=== PATIENT | female | born 1995 | race Caucasian/White ===

== ENCOUNTER 2018-04-17 21:31 | Inpatient (IN) | payer OTHER ==
[2018-04-17] MEDS ORDERED: NS 1,000 ML IV ONE ×2 (21:52)
[2018-04-17] MEDS ORDERED: IBUPROFEN 800 MG TAB PO ONE (21:58)
--- NOTE | 2018-04-17 22:01 | EDPHY ---
H & P Stated Complaint: fever had a kidney infection and scope was told to come in Time Seen by Provider: 04/17/18 22:01 HPI/ROS: HPI CHIEF COMPLAINT: Fever. HISTORY OF PRESENT ILLNESS: This is a 22-year-old female, history of endometriosis, and she has a history of eosinophilic esophagitis, she reports that over the weekend she got sick with fever was running temperatures 101 to 102. She went to urgent care was diagnosed with a urinary tract infection employed on antibiotics. States she has been taking her antibiotics for urinary tract infection, started feel better however spiked a temperature tonight. Additionally she reports to me that she had an EGD which is routine for her today for eosinophilic esophagitis. She presents emergency room with fever, cough, shortness of breath. Past Medical History: Endometriosis, esophagitis Past Surgical History: No recent surgery Social History: Lives locally denies drugs alcohol tobacco. Family History: Noncontributory ROS REVIEW OF SYSTEMS: 10 Systems were reviewed and negative with the exception of the elements mentioned in the history of present illness. Exam Constitutional triage nursing summary reviewed, vital signs reviewed, awake/ alert. Nontoxic but febrile and tachycardic upon arrival. Tachycardic 135, room air sat 89%. Eyes normal conjunctivae and sclera, EOMI, PERRLA. HENT dry lips, posterior pharynx unremarkable, tongue shows thrush, normal inspection, atraumatic, moist mucus membranes, no epistaxis, neck supple/ no meningismus, no raccoon eyes. Respiratory clear to auscultation bilaterally, normal breath sounds, no respiratory distress, no wheezing. Cardiovascular tachycardia, regular rhythm, no murmur, no edema, distal pulses normal. Gastrointestinal soft, non-tender, no rebound, no guarding, normal bowel sounds, no distension, no pulsatile mass. Genitourinary no CVA tenderness. Musculoskeletal no midline vertebral tenderness, full range of motion, no calf swelling, no tenderness of extremities, no meningismus, good pulses, neurovascularly intact. Skin pink, warm, & dry, no rash, skin atraumatic. Neurologic awake, alert and oriented x 3, AAOx3, moves all 4 extremities equally, motor intact, sensory intact, CN II-XII intact, normal cerebellar, normal vision, normal speech. Psychiatric normal mood/affect. Heme/Lymph/Immune no lymphadenopathy. Differential Diagnosis: Includes but is not limited to in a particular order sepsis, UTI, pyelonephritis, bacteremia, influenza, pneumonia Medical Decision Making: Plan for this patient IV establishment IV fluid bolus , check lactic acid, blood cultures, urinalysis, chest x-ray basic blood work and re-evaluate. Motrin for fever control. Re-evaluation: Chest x-ray reviewed shows a left-sided pneumonia. Image interpreted by myself. Plan for this patient treat for community-acquired pneumonia IV Rocephin IV azithro Patient has blood cultures pending. Initial lactic acid 2.4. Will repeat after IV fluids. Patient here tachycardia, fever, 89% room air sat concerning for pneumonia. Chest x-ray confirms pneumonia. Plan for hospital admission Influenza negative. Updated patient. Source: Patient - Personal History LMP (Females 10-55): 22-28 Days Ago Current Tetanus/Diphtheria Vaccine: Yes Current Tetanus Diphtheria and Acellular Pertussis (TDAP): Yes - Medical/Surgical History Hx Asthma: No Hx Chronic Respiratory Disease: No Hx Diabetes: No Hx Cardiac Disease: No Hx Renal Disease: No Hx Cirrhosis: No Hx Alcoholism: No Hx HIV/AIDS: No Hx Splenectomy or Spleen Trauma: No Other PMH: bad menstrual cramps - Social History Smoking Status: Never smoked Constitutional: Initial Vital Signs Temperature (C) 39.3 C H 04/17/18 21:33 Heart Rate 135 H 04/17/18 21:33 Respiratory Rate 18 04/17/18 21:33 Blood Pressure 106/68 04/17/18 21:33 O2 Sat (%) 89 L 04/17/18 21:33 O2 Delivery Mode Nasal Cannula O2 (L/minute) 2 Allergies/Adverse Reactions: aspirin Allergy (Verified 04/18/18 09:07) Unknown Home Medications: Medication Instructions Recorded Hydrocodone/APAP 5/325 [[place] 1 each PO Q6HRS PRN 04/17/18 5/325 (*)] Ondansetron HCl [Zofran] 4 mg PO Q6-8PRN PRN 04/17/18 Sulfamethox/Tmp 800/160 mg 1 tab PO BID 04/17/18 [Bactrim Ds] Cyclobenzaprine [Flexeril 10 MG 5 mg PO HS PRN 04/18/18 (*)] FLUoxetine [Prozac 10 MG (*)] 10 mg PO DAILY 04/18/18 Ibuprofen [Motrin (*)] 200 mg PO DAILY PRN 04/18/18 Tears/Dextran 70/Hypromellose 1 drop EACHEYE Q2 PRN 04/18/18 [Natural Balance Tears (*)] Testosterone IM [Testosterone 50 mg IM Q14D 04/18/18 100mg/ml IM inj (*)] Medical Decision Making - Data Points Laboratory Results: Laboratory Results 04/17/18 22:04 04/17/18 21:50 Microbiology Results: MICROBIOLOGY 04/17/18 21:50 Blood Blood Culture - Preliminary 04/17/18 22:04 Blood Blood Culture - Preliminary Medications Given: Acetaminophen (Tylenol) 650 mg PO Q4HRS PRN PRN Reason: Pain, Mild/Fever, Can Take PO Stop: 10/14/18 22:54 Last Admin: 04/19/18 23:52 Dose: 650 mg Hydrocodone Bitart/Acetaminophen ([place] 5/325) 1 tab PO Q6HRS PRN PRN Reason: Pain, Breakthrough Stop: 04/28/18 09:07 Last Admin: 04/18/18 18:34 Dose: 1 tab Albuterol (Proventil Neb) 3 ml IH Q2HRS PRN PRN Reason: Short of Breath/Dyspnea Stop: 10/14/18 22:54 Last Admin: 04/19/18 21:30 Dose: 3 ml Azithromycin (Zithromax) 250 mg PO DAILY AUSTEN PRN Reason: Protocol Stop: 05/18/18 08:59 Last Admin: 04/19/18 09:52 Dose: 250 mg Fluoxetine HCl (Prozac) 10 mg PO DAILY AUSTEN Stop: 10/15/18 09:14 Last Admin: 04/19/18 09:52 Dose: 10 mg Ceftriaxone Sodium/Dextrose (Rocephin 1 Gm (Premix)) 50 mls @ 100 mls/hr IV DAILY AUSTEN PRN Reason: Protocol Stop: 05/18/18 08:59 Last Admin: 04/19/18 09:52 Dose: 50 mls Ibuprofen (Motrin) 200 mg PO DAILY PRN PRN Reason: Pain, Mild Stop: 10/15/18 09:07 Last Admin: 04/19/18 09:56 Dose: 200 mg Ondansetron HCl (Zofran Odt) 4 mg PO Q4HRS PRN PRN Reason: Nausea/Vomiting, Use 1st Stop: 10/14/18 22:54 Last Admin: 04/18/18 18:35 Dose: 4 mg Discontinued Medications Albuterol (Proventil Neb) 3 ml IH ONCE ONE Stop: 04/19/18 15:49 Last Admin: 04/19/18 16:02 Dose: Not Given Sodium Chloride (Ns) 1,000 mls @ 0 mls/hr IV EDNOW ONE; Wide Open PRN Reason: Protocol Stop: 04/17/18 21:53 Last Admin: 04/17/18 22:03 Dose: 1,000 mls Sodium Chloride (Ns) 1,000 mls @ 0 mls/hr IV EDNOW ONE; Wide Open PRN Reason: Protocol Stop: 04/17/18 21:53 Last Admin: 04/17/18 22:03 Dose: 1,000 mls Azithromycin 500 mg/ Sodium (Chloride) 255 mls @ 255 mls/hr IV EDNOW ONE PRN Reason: Protocol Stop: 04/17/18 23:48 Last Admin: 04/17/18 23:37 Dose: 255 mls Ceftriaxone Sodium/Dextrose (Rocephin 1 Gm (Premix)) 50 mls @ 100 mls/hr IV EDNOW ONE PRN Reason: Protocol Stop: 04/17/18 23:18 Last Admin: 04/17/18 23:05 Dose: 50 mls Sodium Chloride (Ns) 1,000 mls @ 0 mls/hr IV ONCE ONE PRN Reason: Wide Open Stop: 04/18/18 04:00 Last Admin: 04/18/18 04:11 Dose: 1,000 mls Sodium Chloride (Ns) 1,000 mls @ 0 mls/hr IV ONCE ONE PRN Reason: Wide Open Stop: 04/18/18 06:08 Last Admin: 04/18/18 06:43 Dose: 1,000 mls Ibuprofen (Motrin) 800 mg PO EDNOW ONE Stop: 04/17/18 21:59 Last Admin: 04/17/18 22:02 Dose: 800 mg Departure - Departure Disposition: [facility] Acute Clinical Impression: Hypoxia Pneumonia Qualifiers: Pneumonia type: due to unspecified organism Laterality: left Lung location: unspecified part of lung Qualified Code(s): J18.9 - Pneumonia, unspecified organism Condition: Fair
[2018-04-17 22:15] LABS: PLATELET COUNT 236 10^3/uL (150-400)
[2018-04-17] MEDS ORDERED: AZITHROMYCIN IV 500 MG in NS 250 ML IV ONE (22:49)
[2018-04-17] MEDS ORDERED: ONDANSETRON DISINTEGRATING 4 MG TAB PO PRN (22:55)
[2018-04-17] MEDS ORDERED: ONDANSETRON 4 MG/2 ML VIAL IVP PRN (22:55)
[2018-04-18] MEDS: ALBUTEROL 3 ML DEYVIAL IH PRN (02:08)
[2018-04-18] MEDS ORDERED: NS 1,000 ML IV ONE ×2 (03:59→06:07)
--- NOTE | 2018-04-18 04:03 | PDGENHP ---
History and Physical - Chief Complaint Fever, cough - History of Present Illness 22 yo F presents with fever and cough. She was diagnosed with UTI on Saturday of this week after noting R flank pain and fever. She was treated with an antibiotic but she does not recall the name. She felt improved for a few days. Tonight, however, she woke up with a fever and worsening cough. She also feels like her breathing is more labored than usual. She has a history of eosinophilic esophagitis, which she states she controls with diet. Her only home medication is fluoxetine. In the ED her evaluation is notable for L-sided pneumonia on CXR, fever, tachycardia, and low/normal BPs. She is being admitted for treatment of presumed CAP. Case discussed with ED physician Dr. Hughes; records reviewed and summarized above. History Information - Allergies/Home Medication List Allergies/Adverse Reactions: aspirin Allergy (Verified 04/17/18 21:37) Home Medications: Control Pills 08/04/14 [Last Taken Unknown] Abx 04/17/18 [Last Taken Unknown] [place] 10-325 Tablet 04/17/18 [Last Taken Unknown] Zofran 04/17/18 [Last Taken Unknown] I have personally reviewed and updated: family history, medical history - Past Medical History Additional medical history: Eosinophilic esophagitis - Surgical History Additional surgical history: Asked, denies - Family History Additional family history: CKD - Social History Smoking Status: Never smoked Review of Systems Review of Systems: ROS: 10pt was reviewed & negative except for what was stated in HPI & below Physical Exam Physical Exam: Temp Pulse Resp BP Pulse Ox 36.6 C 77 16 75/43 L 98 04/18/18 03:42 04/18/18 03:42 04/18/18 03:42 04/18/18 03:42 04/18/18 03:42 O2 (L/minute) 4 Constitutional: no apparent distress, not in pain Eyes: PERRL, EOMI Ears, Nose, Mouth, Throat: moist mucous membranes, no oral mucosal ulcers Cardiovascular: regular rate and rhythym, no murmur, rub, or gallop Respiratory: no respiratory distress, reduced air movement, expiratory wheeze ( Mild), inspiratory crackles (LLL) Gastrointestinal: normoactive bowel sounds, soft, non-tender abdomen Skin: warm, normal color Neurologic: AAOx3, CN II-XII Intact Psychiatric: interacting appropriately, not anxious Lab Data & Imaging Review 04/17/18 22:04 04/17/18 21:50 WBC 9.98 10^3/uL (3.80-9.50) H 04/17/18 22:04 RBC 4.75 10^6/uL (4.18-5.33) 04/17/18 22:04 Hgb 14.5 g/dL (12.6-16.3) 04/17/18 22:04 Hct 41.7 % (38.0-47.0) 04/17/18 22:04 MCV 87.8 fL (81.5-99.8) 04/17/18 22:04 MCH 30.5 pg (27.9-34.1) 04/17/18 22:04 MCHC 34.8 g/dL (32.4-36.7) 04/17/18 22:04 RDW 13.0 % (11.5-15.2) 04/17/18 22:04 Plt Count 236 10^3/uL (150-400) 04/17/18 22:04 MPV 11.4 fL (8.7-11.7) 04/17/18 22:04 Neut % (Auto) 83.3 % (39.3-74.2) H 04/17/18 22:04 Lymph % (Auto) 9.8 % (15.0-45.0) L 04/17/18 22:04 [place] % (Auto) 5.6 % (4.5-13.0) 04/17/18 22:04 Eos % (Auto) 0.5 % (0.6-7.6) L 04/17/18 22:04 Baso % (Auto) 0.3 % (0.3-1.7) 04/17/18 22:04 Nucleat RBC Rel Count 0.0 % (0.0-0.2) 04/17/18 22:04 Absolute Neuts (auto) 8.31 10^3/uL (1.70-6.50) H 04/17/18 22:04 Absolute Lymphs (auto) 0.98 10^3/uL (1.00-3.00) L 04/17/18 22:04 Absolute Monos (auto) 0.56 10^3/uL (0.30-0.80) 04/17/18 22:04 Absolute Eos (auto) 0.05 10^3/uL (0.03-0.40) 04/17/18 22:04 Absolute Basos (auto) 0.03 10^3/uL (0.02-0.10) 04/17/18 22:04 Absolute Nucleated RBC 0.00 10^3/uL (0-0.01) 04/17/18 22:04 Immature Gran % 0.5 % (0.0-1.1) 04/17/18 22:04 Immature Gran # 0.05 10^3/uL (0.00-0.10) 04/17/18 22:04 VBG Lactic Acid 1.4 mmol/L (0.7-2.1) 04/17/18 23:05 Sodium 138 mEq/L (135-145) 04/17/18 21:50 Potassium 4.6 mEq/L (3.5-5.2) 04/17/18 21:50 Chloride 104 mEq/L (97-110) 04/17/18 21:50 Carbon Dioxide 23 mEq/l (22-31) 04/17/18 21:50 Anion Gap 11 mEq/L (6-14) 04/17/18 21:50 BUN 11 mg/dL (7-23) 04/17/18 21:50 Creatinine 0.9 mg/dL (0.6-1.0) 04/17/18 21:50 Estimated GFR > 60 04/17/18 21:50 Glucose 146 mg/dL (70-100) H 04/17/18 21:50 Calcium 9.1 mg/dL (8.5-10.4) 04/17/18 21:50 Total Bilirubin 0.6 mg/dL (0.1-1.4) 04/17/18 21:50 Conjugated Bilirubin 0.5 mg/dL (0.0-0.5) 04/17/18 21:50 Unconjugated Bilirubin 0.1 mg/dL (0.0-1.1) 04/17/18 21:50 AST 37 IU/L (14-46) 04/17/18 21:50 ALT 28 IU/L (9-52) 04/17/18 21:50 Alkaline Phosphatase 72 IU/L (38-126) 04/17/18 21:50 Total Protein 6.6 g/dL (6.3-8.2) 04/17/18 21:50 Albumin 3.7 g/dL (3.5-5.0) 04/17/18 21:50 Lipase 19 IU/L (23-300) L 04/17/18 21:50 Beta HCG, Qual NEGATIVE 04/17/18 22:04 Urine Color PALE YELLOW 04/17/18 22:30 Urine Appearance CLEAR 04/17/18 22:30 Urine pH 8.0 (5.0-7.5) H 04/17/18 22:30 Ur Specific [place] 1.003 (1.002-1.030) 04/17/18 22:30 Urine Protein NEGATIVE (NEGATIVE) 04/17/18 22:30 Urine Ketones NEGATIVE (NEGATIVE) 04/17/18 22:30 Urine Blood 1+ (NEGATIVE) H 04/17/18 22:30 Urine Nitrate NEGATIVE (NEGATIVE) 04/17/18 22:30 Urine Bilirubin NEGATIVE (NEGATIVE) 04/17/18 22:30 Urine Urobilinogen 2.0 EU (0.2-1.0) H 04/17/18 22:30 Ur Leukocyte Esterase TRACE (NEGATIVE) H 04/17/18 22:30 Urine RBC 1-3 /hpf (0-3) 04/17/18 22:30 Urine WBC 1-3 /hpf (0-3) 04/17/18 22:30 Ur Epithelial Cells TRACE /lpf (NONE-1+) 04/17/18 22:30 Urine Mucus TRACE /lpf (NONE-1+) 04/17/18 22:30 Urine Glucose NEGATIVE (NEGATIVE) 04/17/18 22:30 Nasal Influenza A PCR NEGATIVE FOR FLU A (NEGATIVE) 04/17/18 21:50 Nasal Influenza B PCR NEGATIVE FOR FLU B (NEGATIVE) 04/17/18 21:50 Imaging Review: Imaging Impressions Chest X-Ray 04/17/18 22:27 Impression: Lingular pneumonia. Assessment & Plan Assessment: 22 yo F w/ hx of eosinophilic esophagitis presents with pneumonia. Plan: 1. Sepsis - 2/2 community acquired pneumonia; sepsis present on admission based on 2/4 SIRS criteria (HR, T) and CXR (personally reviewed/interpreted) demonstrating L-sided pneumonia. It is odd that this 22 yo female has been diagnosed with 2 bacterial infections in the same week (Diagnosed with UTI a few days ago). - CTX/Azithromycin for CAP coverage - Blood and sputum cultures ordered - Respiratory PCR, procalcitonin ordered - Continue IVF 2. AHRF - Currently requiring 3-4 L/min O2 to maintain O2 sats >89%. This is likely due to pneumonia and possible asthma/RAD noting mild wheeze on exam. - Infectious treatment as above - O2 PRN - Incentive spirometry - Albuterol PRN 3. Lactic acidosis - Resolved with IVF. 4. Hx eosinophilic esophagitis - Patient states this is diet controlled. Diet - Regular Code - Full Ppx - Low risk, ambulate TID Dispo - Admit under observation status
[2018-04-18 04:48] LABS: PLATELET COUNT 190 10^3/uL (150-400)
[2018-04-18 06:47] LABS: HIV TYPE 1 AND 2 NEGATIVE (NEGATIVE)
[2018-04-18] MEDS: AZITHROMYCIN 250 MG TAB PO SCH (08:18)
[2018-04-18] MEDS ORDERED: HYDROCODONE/APAP 5/325 TAB PO PRN (09:08)
[2018-04-18] MEDS ORDERED: IBUPROFEN 200 MG TAB PO PRN (09:08)
[2018-04-18] MEDS ORDERED: TEARS/DEXTRAN 70/HYPROMELLOSE 15 ML OPHT.BTL EACHEYE PRN (09:08)
--- NOTE | 2018-04-18 09:10 | HOSPPROG ---
Hospitalist Progress Note Assessment/Plan: 22 yo F w/ hx of eosinophilic esophagitis presents with pneumonia. First encounter, chart reviewed. *sepsis due to pna -tachycardia, fever, elevated lactate -PCR pending -has a lingular pna, procalcitonin 0.14 -will ask ID to see -azithro and Ceftriaxone *acute hypoxemic failure -was on 4 liters, now on 2 l *lactic acidosis -resolved *hx of eosinophilic esophagitis -diet controlled *plan: ID to see. Subjective: Romelia said it is hard to breathe in. Objective: Vital Signs Temp Pulse Resp BP Pulse Ox 36.7 C 72 14 87/49 L 96 04/18/18 08:00 04/18/18 08:00 04/18/18 08:00 04/18/18 08:00 04/18/18 08:00 Laboratory Results 04/18/18 04:36 04/18/18 04:36 04/17/18 04/18/18 04/19/18 05:59 05:59 05:59 Intake Total 997 Output Total 800 Balance -800 997 - Physical Exam Constitutional: appears nourished, uncomfortable Eyes: PERRL Ears, Nose, Mouth, Throat: hearing normal Cardiovascular: regular rate and rhythym, No tachycardia Respiratory: no respiratory distress, reduced air movement (left middle lobe down, very poor inspiratory effort due to the pain) Skin: warm Musculoskeletal: full muscle strength Neurologic: AAOx3 Psychiatric: interacting appropriately ICD10 Worksheet Patient Problems: Problems Problem Status Onset Hypoxia Acute Pneumonia Acute
--- NOTE | 2018-04-18 09:12 | ASMTCMCOM ---
CM Note CM Note Notes: Pt is a 22 y/o female admitted for pneumonia. Pt was diagnosed with a UTI a few days ago. Pt is currently on ivabx. Pt will most likely switch to oral antibiotics at time of d/c. Pt should not have any d/c needs. CM available for changes. Plan: Independent Date Signed: 04/18/2018 09:12 AM Electronically Signed By:AARTI Rothman
[2018-04-18] MEDS: ACETAMINOPHEN 325 MG TAB PO PRN ×3 (10:04→21:25)
[2018-04-18] MEDS: FLUoxetine 10 MG CAP PO SCH (10:27)
--- NOTE | 2018-04-18 11:58 | PDCONSULT ---
[employer] Supervisor Note: Infectious Diseases Consult Note Impression: 22-year-old woman with community onset pneumonia. She had negative PCR influenza testing and consolidation on chest x-ray with no suspicion for atypical pathogens. 1. Community onset pneumonia 2. Hypoxia 3. History of eosinophilic esophagitis with no immune suppressive therapy Plan: 1. Continue ceftriaxone 1 g daily 2. Continue azithromycin 250 mg p.o. Daily 3. Send urine for Legionella and pneumococcal antigens 4. Discontinue droplet precautions 5. Repeat CBC with diff and BMP tomorrow Honorio Monique MD Infectious Diseases Chief Complaint: Fever and cough Requesting Provider: Steph Mckinley Reason for Referral: Consultation was requested by Steph Mckinley regarding antimicrobial management. HPI: 22-year-old woman who presented to the emergency department with increasing fever and cough. She was in her usual state of good health until this past Saturday when she developed fever, night sweats, and abdominal pain. This continued through Saturday with increasing fever and worsening night sweats. She presented to Urgent Care on Saturday where she was prescribed an antibiotic of which she does not recall the name. She does not recognize the names Levaquin, Augmentin or Cipro. After taking the antibiotic she initially started to feel better into Saturday and Saturday but her fevers began to get worse Saturday night and then where she had a recorded temperature at home of 102 degrees F. She developed a cough starting Saturday and worsened through . She notes no dysuria, urinary urgency, or urinary frequency currently or leading into her urgent care visit. She notes her girlfriend who lives with her has not been sick with similar symptoms. She has not had known sick contacts. 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 She took care of the animals throughout the month of March. She did not feel unwell throat March when taking care of the animals. She has no rash, arthralgias, myalgias abdominal pain, or diarrhea. Travel history: She has traveled to [place] last December and felt unwell on her renal return trip that resolved within 24 hr Past Medical History: Eosinophilic esophagitis, not on treatment; Past Surgical History: Right ankle osteomyelitis washout as a child; tonsillectomy as a child Social History: Does not smoke cigarettes, drinks occasional alcohol, consumes marijuana mostly at doubles occasionally smokes through a vaporizer Family History: No family members with recurrent infections Allergies: Aspirin Medications: Reviewed in medical record and confirmed with patient. ROS: 10 organ systems reviewed; pertinent positives and negatives listed in the HPI, all other organ systems negative. Physical Exam: VS: Reviewed Gen: No acute distress; Breathing comfortably with exogenous oxygen; Able to speak in complete sentences Eyes: No conjunctival injection; No scleral icterus HENT: No gross deformities Neck: No limitation in range of motion Pulm: Breath sounds clear to the bases bilaterally; No wheeze, rhonchi; crackles in the left posterior lung mid zone CV: Normal S1 and S2; Regular rate and rhythm; No murmurs, rubs, or gallops; No lower extremity edema Abd: Not distended; hypo-active bowel sounds; Soft; Non-tender Skin: A full skin exam including exposed bilateral upper extremities, bilateral lower extremities to the knees, face, neck, abdomen, chest, and back performed; Skin intact, warm, with no rash MSK: Joints without erythema or edema; No gross limitation in range of motion Ext: No clubbing or cyanosis Neuro: Awake and alert Psych: Normal mood and blunted affect Labs/Imaging: All microbiology testing (culture and non-culture) reviewed in the medical record. Personally reviewed and interpreted the images of the following radiographs: Chest x-ray showing left lingular consolidation. Medications Generic Name Dose Route Start Last Admin Trade Name Freq PRN Reason Stop Dose Admin Azithromycin 250 mg 04/18/18 09:00 04/18/18 08:18 Zithromax PO 05/18/18 08:59 250 mg DAILY AUSTEN Protocol Ceftriaxone Sodium/Dextrose 50 mls @ 100 mls/hr 04/18/18 09:00 04/18/18 08:20 Rocephin 1 Gm (Premix) IV 05/18/18 08:59 50 mls DAILY AUSTEN Protocol Discontinued Medications Generic Name Dose Route Start Last Admin Trade Name Freq PRN Reason Stop Dose Admin Azithromycin 500 mg/ Sodium 255 mls @ 255 mls/hr 04/17/18 22:49 04/17/18 23: 37 Chloride IV 04/17/18 23:48 255 mls EDNOW ONE Protocol Ceftriaxone Sodium/Dextrose 50 mls @ 100 mls/hr 04/17/18 22:49 04/17/18 23:05 Rocephin 1 Gm (Premix) IV 04/17/18 23:18 50 mls EDNOW ONE Protocol Microbiology 04/18/18 08:15 Nasal, Sinus - Swab Respiratory Panel (PCR) - Final No Organism Detected By Pcr Laboratory Tests 04/17/18 04/17/18 04/17/18 21:50 21:50 22:04 WBC 9.98 H Hgb 14.5 Plt Count 236 Creatinine 0.9 Procalcitonin Beta HCG, Qual Nasal Influenza A PCR NEGATIVE FOR FLU A Nasal Influenza B PCR NEGATIVE FOR FLU B HIV 1&2 Antibody Urine Legionella Ag 04/17/18 04/18/18 04/18/18 22:04 04:36 04:36 WBC 10.69 H Hgb 11.8 L Plt Count 190 Creatinine 0.8 Procalcitonin Beta HCG, Qual NEGATIVE Nasal Influenza A PCR Nasal Influenza B PCR HIV 1&2 Antibody Urine Legionella Ag 04/18/18 04/18/18 04/18/18 04:36 04:36 10:00 WBC Hgb Plt Count Creatinine Procalcitonin 0.16 H Beta HCG, Qual Nasal Influenza A PCR Nasal Influenza B PCR HIV 1&2 Antibody NEGATIVE Urine Legionella Ag Pending Ongoing monitoring for antimicrobial toxicity with: CBC, BMP.
[2018-04-18] MEDS ORDERED: CYCLOBENZAPRINE 10 MG TAB PO PRN (16:59)
[2018-04-19] MEDS: ACETAMINOPHEN 325 MG TAB PO PRN ×3 (03:01→23:52)
[2018-04-19 05:01] LABS: PLATELET COUNT 184 10^3/uL (150-400)
[2018-04-19] MEDS: AZITHROMYCIN 250 MG TAB PO SCH (09:52)
[2018-04-19] MEDS: FLUoxetine 10 MG CAP PO SCH (09:52)
--- NOTE | 2018-04-19 10:36 | PCMIDPN ---
Assessment/Plan: Assessment: 22-year-old woman with community onset pneumonia. Although her fevers have resolved she does continue to require exogenous oxygen to maintain saturations in the mid upper 90s. Removed her nasal cannula while talking this morning with oxygen saturations falling to the low 90s. She is tolerating oral intake and is not having diarrhea, to discharge on oral therapy would be feasible but her oxygen requirement may be limitation for discharge today. 1. Community onset pneumonia, improving 2. Neutrophilic leukocytosis, stable; secondary to 1. 3. History of eosinophilic esophagitis, no immune suppressive medications 4. Acute anemia, likely related to septic response 5. Decreased platelet count, stable; likely secondary to 1. Plan: 1. Continue ceftriaxone 1 g daily 2. Continue azithromycin 250 mg p.o. Daily 3. Discussed in detail potential side effects of antibiotics to include antibiotic associated diarrhea, rash, C diff colitis 4. Encouraged ambulation and deep breathing to facilitate expect duration of sputum Honorio Monique MD Infectious Diseases 04/19/18 10:37 Subjective: No fever or chills overnight. Nausea last evening that is resolved this morning. No abdominal pain or diarrhea. She is coughing but unable to expectorates sputum. Continues to feel very short of breath even with ambulation just to the restroom with oxygen off. Objective: Vital Signs Temp Pulse Resp BP Pulse Ox 36.9 C 65 18 96/56 L 95 04/19/18 08:00 04/19/18 08:00 04/19/18 08:00 04/19/18 08:00 04/19/18 08:00 Microbiology 04/18/18 08:15 Respiratory Panel (PCR) - Final Nasal, Sinus - Swab No Organism Detected By Pcr Laboratory Results 04/19/18 04:28 04/19/18 04:28 04/18/18 04/19/18 04/20/18 05:59 05:59 05:59 Intake Total 2497 350 Output Total 800 Balance -800 2497 350 Microbiology 04/18/18 08:15 Nasal, Sinus - Swab Respiratory Panel (PCR) - Final No Organism Detected By Pcr 04/17/18 22:04 Blood Blood Culture - Preliminary 04/17/18 21:50 Blood Blood Culture - Preliminary Laboratory Tests 04/17/18 04/17/18 04/18/18 21:50 22:04 04:36 WBC 9.98 H 10.69 H Hgb 14.5 11.8 L Plt Count 236 190 Absolute Neuts (auto) 8.31 H 7.96 H Creatinine Nasal Influenza A PCR NEGATIVE FOR FLU A Nasal Influenza B PCR NEGATIVE FOR FLU B HIV 1&2 Antibody Urine Legionella Ag 04/18/18 04/18/18 04/18/18 04:36 04:36 10:00 WBC Hgb Plt Count Absolute Neuts (auto) Creatinine 0.8 Nasal Influenza A PCR Nasal Influenza B PCR HIV 1&2 Antibody NEGATIVE Urine Legionella Ag Pending 04/19/18 04/19/18 04:28 04:28 WBC 10.24 H Hgb 11.6 L Plt Count 184 Absolute Neuts (auto) 6.78 H Creatinine 0.7 Nasal Influenza A PCR Nasal Influenza B PCR HIV 1&2 Antibody Urine Legionella Ag Medications Generic Name Dose Route Start Last Admin Trade Name Freq PRN Reason Stop Dose Admin Azithromycin 250 mg 04/18/18 09:00 04/19/18 09:52 Zithromax PO 05/18/18 08:59 250 mg DAILY [facility] Protocol Ceftriaxone Sodium/Dextrose 50 mls @ 100 mls/hr 04/18/18 09:00 04/19/18 09:52 Rocephin 1 Gm (Premix) IV 05/18/18 08:59 50 mls DAILY [facility] Protocol Discontinued Medications Generic Name Dose Route Start Last Admin Trade Name Freq PRN Reason Stop Dose Admin Azithromycin 500 mg/ Sodium 255 mls @ 255 mls/hr 04/17/18 22:49 04/17/18 23: 37 Chloride IV 04/17/18 23:48 255 mls EDNOW ONE Protocol Ceftriaxone Sodium/Dextrose 50 mls @ 100 mls/hr 04/17/18 22:49 04/17/18 23:05 Rocephin 1 Gm (Premix) IV 04/17/18 23:18 50 mls EDNOW ONE Protocol - Physical Exam General Appearance: no apparent distress, thin, non-toxic EENT: No scleral icterus Respiratory: lungs clear, normal breath sounds, No respiratory distress, No wheezing Neck: supple Cardiac/Chest: regular rate, rhythm, No bradycardia, No tachycardia, No diastolic murmur, No systolic murmur Extremities: No erythema Abdomen: non-tender, soft, No distended, No guarding Skin: No erythema Neuro/Psych: alert, oriented x 3, depressed affect, No confused - Time Spent With Patient Time Spent with Patient: greater than 25 minutes Time Spent with Patient: Greater than 25 minutes spent on this patients care, greater than 50% of time spent counseling, educating, and coordinating care regarding the above mentioned plan. ICD10 Worksheet Patient Problems: Problems Problem Status Onset Hypoxia Acute Pneumonia Acute
[2018-04-19] MEDS: ALBUTEROL 3 ML DEYVIAL IH PRN ×2 (15:31→21:30)
[2018-04-19] MEDS ORDERED: ALBUTEROL 3 ML DEYVIAL IH ONE (15:48)
--- NOTE | 2018-04-19 15:48 | HOSPPROG ---
Hospitalist Progress Note Assessment/Plan: 22 yo F previously healthy presents with sepsis and pna # pna: personally reviewed cxr with lingular pna present, being treated with ctx /azith for now, some clinical improvement but still feeling very poorly and hypoxic # sepsis: meeting sirs criteria with leukocytosis, fever, tachycardia on presentation in setting of above, resolved # acute hypoxic respiratory failure: patient still requiring o2 to maintain o2 sats > 90 and in the low 80s on RA, due to pna as above, will continue abx/ ambulation/IS. # hx of eosinophilic esophagitis # recent UTI: no longer having sxs, UA clear # IP status, will require > 48 hours stay for eval/mgmt of above Patient new to my care. Old records reviewed and summarized as above. Subjective: no significant overnight events, patient notes she is not feeling much better, still very weak and sob with exertion Objective: Vital Signs Temp Pulse Resp BP Pulse Ox 36.9 C 45 L 12 92/62 L 93 04/19/18 12:00 04/19/18 15:37 04/19/18 15:37 04/19/18 12:00 04/19/18 15:37 Microbiology 04/18/18 08:15 Respiratory Panel (PCR) - Final Nasal, Sinus - Swab No Organism Detected By Pcr Laboratory Results 04/19/18 04:28 04/19/18 04:28 04/18/18 04/19/18 04/20/18 05:59 05:59 05:59 Intake Total 2497 350 Output Total 800 Balance -800 2497 350 awake alert anicteric op clear rrr no mrg dec bs, left rales soft nt nd no cce warm dry well perfused ICD10 Worksheet Patient Problems: Problems Problem Status Onset Pneumonia Acute Hypoxia Acute
--- NOTE | 2018-04-20 07:53 | PDMN ---
Medical Necessity Medical necessity: Change to inpt as of 04/19/18 @ 15:51, meets inpt criteria per MD order and MCG [id number], Pneumonia, Community Acquired, A-2 days. 22 y/o w/ hx of eosinophilic esophagitis admitted w/PNA and sepsis, pt still feeling very poorly- very weak and SOB, upgraded to inpt for persistent AHRF, still requiring 2 LO2 to maintain sats>90% (O2 sats in low 80's on RA), cont IV ABX's , IS. Est LOS>2MN for ongoing med nec treatment of above.
[2018-04-20] MEDS: AZITHROMYCIN 250 MG TAB PO SCH (08:50)
[2018-04-20] MEDS: FLUoxetine 10 MG CAP PO SCH (08:51)
[2018-04-20] MEDS: ACETAMINOPHEN 325 MG TAB PO PRN ×2 (09:04→17:27)
[2018-04-20] MEDS ORDERED: IOHEXOL 350mgI/ML (OMNIPAQUE) 150 ML BTL IV ONE (09:44)
--- NOTE | 2018-04-20 11:40 | PCMIDPN ---
Assessment/Plan: Assessment: 22-year-old woman with community onset pneumonia. She continues to have decreased oxygen saturations while at rest on room air and noticeable shortness of breath with ambulation. Concern for pulmonary embolism given the slow rate of recovery and affect she needs supplemental oxygen at her young age. Personally reviewed the CT images obtained this morning which show patchy left lung infiltrates and ground-glass opacities but no pulmonary embolus, confirmed by radiologist read. 1. Community onset pneumonia, stable 2. Neutrophilic leukocytosis, stable; secondary to 1. 3. History of eosinophilic esophagitis, no immune suppressive medications 4. Acute anemia, likely related to septic response 5. Decreased platelet count, stable; likely secondary to 1. Plan: 1. Continue ceftriaxone 1 g daily 2. Continue azithromycin 250 mg p.o. Daily 3. Chest CT to rule out PE 4. Discussed in detail potential side effects of antibiotics to include antibiotic associated diarrhea, rash, C diff colitis 5. Encouraged ambulation and deep breathing to facilitate expect duration of sputum Honorio Monique MD Infectious Diseases 04/20/18 11:40 Subjective: No fever or chills. She continues to be quite short of breath when ambulating to the restroom. Cough increasingly productive of sputum. Central chest pressure. No rash or diarrhea. Objective: Vital Signs Temp Pulse Resp BP Pulse Ox 36.6 C 62 18 94/58 L 97 04/20/18 07:44 04/20/18 07:44 04/20/18 07:44 04/20/18 07:44 04/20/18 07:44 04/19/18 04/20/18 04/21/18 05:59 05:59 05:59 Intake Total 650 Output Total 450 Balance 200 Medications Generic Name Dose Route Start Last Admin Trade Name Freq PRN Reason Stop Dose Admin Azithromycin 250 mg 04/18/18 09:00 04/20/18 08:50 Zithromax PO 05/18/18 08:59 250 mg DAILY [facility] Protocol Ceftriaxone Sodium/Dextrose 50 mls @ 100 mls/hr 04/18/18 09:00 04/20/18 08:50 Rocephin 1 Gm (Premix) IV 05/18/18 08:59 50 mls DAILY [facility] Protocol Microbiology 04/18/18 08:15 Nasal, Sinus - Swab Respiratory Panel (PCR) - Final No Organism Detected By Pcr 04/17/18 22:04 Blood Blood Culture - Preliminary 04/17/18 21:50 Blood Blood Culture - Preliminary Laboratory Tests 04/17/18 04/18/18 04/18/18 21:50 04:36 04:36 WBC 10.69 H Hgb 11.8 L Plt Count 190 Creatinine 0.8 Nasal Influenza A PCR NEGATIVE FOR FLU A Nasal Influenza B PCR NEGATIVE FOR FLU B HIV 1&2 Antibody Urine Legionella Ag Ur Strep pneumoniae Ag 04/18/18 04/18/18 04/19/18 04:36 10:00 04:28 WBC 10.24 H Hgb 11.6 L Plt Count 184 Creatinine Nasal Influenza A PCR Nasal Influenza B PCR HIV 1&2 Antibody NEGATIVE Urine Legionella Ag Pending Ur Strep pneumoniae Ag 04/19/18 04/20/18 04:28 01:39 WBC Hgb Plt Count Creatinine 0.7 Nasal Influenza A PCR Nasal Influenza B PCR HIV 1&2 Antibody Urine Legionella Ag Ur Strep pneumoniae Ag Pending - Physical Exam General Appearance: no apparent distress, non-toxic (Breathing comfortably at rest with supplemental oxygen via nasal cannula) EENT: No scleral icterus Respiratory: lungs clear, normal breath sounds, No respiratory distress, No wheezing Neck: full range of motion, supple Cardiac/Chest: regular rate, rhythm, No bradycardia, No tachycardia, No diastolic murmur, No systolic murmur Extremities: No erythema Abdomen: normal bowel sounds, non-tender, soft, No distended, No guarding Skin: No rash Neuro/Psych: alert, oriented x 3, depressed affect, No confused - Time Spent With Patient Time Spent with Patient: greater than 35 minutes Time Spent with Patient: Greater than 35 minutes spent on this patients care, greater than 50% of time spent counseling, educating, and coordinating care regarding the above mentioned plan. ICD10 Worksheet Patient Problems: Problems Problem Status Onset Hypoxia Acute Pneumonia Acute
--- NOTE | 2018-04-20 12:27 | HOSPPROG ---
Hospitalist Progress Note Assessment/Plan: 22 yo F previously healthy presents with sepsis and pna # pna: personally reviewed cxr with lingular pna present, being treated with ctx /azith for now, some clinical improvement but still feeling very poorly and hypoxic, will continue IP management for now and hopefully dc in am on oral abx , appreciate ID input # sepsis: meeting sirs criteria with leukocytosis, fever, tachycardia on presentation in setting of above, resolved # acute hypoxic respiratory failure: patient still requiring o2 to maintain o2 sats > 90 and drops to the 80s on RA, CTA performed to r/o PE --no PE however patient on CT found to have PNA as above in addition to diffuse lymphadenopathy presumably reactive with concurrent residual thymic tissue and thymic hyperplasia--per radiology difficult to exclude underlying lymphoproliferative d /o and therefore recommend f/u CT in 6-8 weeks post treatment of PNA--discussed with patient and her father at length # hx of eosinophilic esophagitis # recent UTI: no longer having sxs, UA clear # IP status, will require > 48 hours stay for eval/mgmt of above, will likely dc on 04/21 --possibly with supplemental o2 if unable to wean off Subjective: no significant overnight events, patient feeling a bit better but remains fairly weak/exhausted and sob with even minimal exertion Objective: Vital Signs Temp Pulse Resp BP Pulse Ox 36.6 C 69 17 92/52 L 95 04/20/18 11:37 04/20/18 11:37 04/20/18 11:37 04/20/18 11:37 04/20/18 11:37 04/19/18 04/20/18 04/21/18 05:59 05:59 05:59 Intake Total 650 Output Total 450 Balance 200 awake alert ill appearing anicteric op clear rrr no mrg dec bs, left rales, dry cough soft nt nd no cce warm dry well perfused oriented appropriate - Time Spent With Patient Time Spent with Patient: greater than 35 minutes Time Spent with Patient: Greater than 35 minutes spent on this patients care, greater than 50% of time spent counseling, educating, and coordinating care regarding the above mentioned plan. ICD10 Worksheet Patient Problems: Problems Problem Status Onset Hypoxia Acute Pneumonia Acute
[2018-04-20] MEDS: ALBUTEROL 3 ML DEYVIAL IH PRN (13:34)
[2018-04-20] MEDS: ACETYLCYSTEINE 10% IH/PO 4 ML VIAL IH SCH ×2 (13:40→23:27)
[2018-04-21 05:31] LABS: PLATELET COUNT 344 10^3/uL (150-400)
[2018-04-21] MEDS: ACETYLCYSTEINE 10% IH/PO 4 ML VIAL IH SCH ×2 (05:36→10:06)
[2018-04-21] MEDS: FLUoxetine 10 MG CAP PO SCH (08:38)
[2018-04-21] MEDS: AZITHROMYCIN 250 MG TAB PO SCH (08:38)
[2018-04-21] MEDS: ALBUTEROL 3 ML DEYVIAL IH PRN (10:06)
--- NOTE | 2018-04-21 10:23 | HOSPPROG ---
Hospitalist Progress Note Assessment/Plan: 22 yo F w/ hx of eosinophilic esophagitis presents with pneumonia. *sepsis due to pna -tachycardia, fever, elevated lactate -has a lingular pna, procalcitonin 0.14 -will ask ID to see -azithro and Ceftriaxone *acute hypoxemic failure -now on room air *acute hypoxic respiratory failure -CTA shows no PE but PNA in addition to diffuse lymphadenopathy presumably reactive with concurrent residual thymic tissue and thymic hyperplasia--per radiology difficult to exclude underlying lymphoproliferative d/o and therefore recommend f/u CT in 6-8 weeks post treatment of PNA-Dr Yost discussed with patient and her father *lactic acidosis -resolved *hx of eosinophilic esophagitis -diet controlled *plan: dc home after ID sees her Subjective: Romelia is feeling much better today, wants to go home. Objective: Vital Signs Temp Pulse Resp BP Pulse Ox 36.8 C 80 18 114/64 94 04/21/18 07:43 04/21/18 10:00 04/21/18 10:00 04/21/18 07:43 04/21/18 10:00 Laboratory Results 04/21/18 05:02 04/20/18 04/21/18 04/22/18 05:59 05:59 05:59 Intake Total 650 1050 Output Total 450 Balance 200 1050 - Physical Exam Constitutional: no apparent distress, appears nourished, not in pain Eyes: PERRL Ears, Nose, Mouth, Throat: hearing normal Cardiovascular: regular rate and rhythym Respiratory: no respiratory distress, clear to auscultation Gastrointestinal: normoactive bowel sounds Skin: warm Musculoskeletal: full muscle strength Neurologic: AAOx3 Psychiatric: interacting appropriately ICD10 Worksheet Patient Problems: Problems Problem Status Onset Hypoxia Acute Pneumonia Acute
--- NOTE | 2018-04-21 11:22 | ASMTCMCOM ---
CM Note CM Note Notes: Pts case discussed w/ Steph Mckinley NP regarding d/c POC. Pt is currently still on ivabx. Pt will most likely d/c independent when medically stable. No therapies ordered at this time. CM available for changes. Plan: Independent Date Signed: 04/21/2018 11:22 AM Electronically Signed By:AARTI Rothman
--- NOTE | 2018-04-21 11:42 | PCMIDPN ---
Assessment/Plan: Assessment: Left lingular pneumonia. No positive tests that point to a particular pathogen. Patient is on empiric ceftriaxone and azithromycin. She has made significant clinical improvements over the last 3-4 days. We will change her over to oral Augmentin 875/1-5 p.o. Twice daily for total of 10 days. She can discharge at any time from our standpoint. Plan: 1. Transition from IV ceftriaxone and azithromycin to oral Augmentin 875/125 p.o. Twice daily. 2. Discharge home with follow-up with primary care in the next 7 days. 04/21/18 11:39 Subjective: Patient is resting comfortably in her hospital bed. She is in good spirits and able to walk around without significant shortness of breath. No fevers or chills. Appetite is improving. Denies significant cough. Objective: Ceftriaxone # 4 Azithromycin # 4 Vital Signs Temp Pulse Resp BP Pulse Ox 36.8 C 80 18 114/64 94 04/21/18 07:43 04/21/18 10:00 04/21/18 10:00 04/21/18 07:43 04/21/18 10:00 Laboratory Results 04/21/18 05:02 04/20/18 04/21/18 04/22/18 05:59 05:59 05:59 Intake Total 650 1050 Output Total 450 Balance 200 1050 - Physical Exam General Appearance: WD/WN, alert, no apparent distress, non-toxic Respiratory: lungs clear, normal breath sounds, No respiratory distress Cardiac/Chest: regular rate, rhythm, No tachycardia Skin: normal color, warm/dry, No rash Neuro/Psych: alert, normal mood/affect, oriented x 3 ICD10 Worksheet Patient Problems: Problems Problem Status Onset Hypoxia Acute Pneumonia Acute
--- NOTE | 2018-04-21 12:10 | GDS ---
[f rep st] DISCHARGE SUMMARY DISCHARGE DIAGNOSES: 1. Sepsis due to pneumonia. 2. Acute hypoxemic respiratory failure. 3. Lactic acidosis. 4. History of eosinophilic esophagitis. CONSULTATION: Dr. Tariq Bazzi. HISTORY OF PRESENT ILLNESS: Briefly, this patient is a 22-year-old woman who presented to the emerge ncy room with fever and cough. She was recently diagnosed with UTI. She started to feel better afte r getting her urinary tract infection treated, but she woke up with fever, worsening cough, and felt like she was breathing more so than her baseline. It was noted that she had a left-sided pneumonia a nd was admitted for further care. She was seen by Infectious Disease due to the extensiveness of the pneumonia. She has improved throughout her stay and will be discharged home with close followup. HOSPITAL COURSE BY PROBLEM: 1. Sepsis due to pneumonia. She had tachycardia, fever, and elevated lactate. She had lingular pne umonia. She was treated with azithromycin and ceftriaxone. She will be discharged home on Augmentin . 2. Acute hypoxemic respiratory failure, resolved. She had a CTA that shows no PE, but pneumonia in addition to diffuse lymphadenopathy, presumably reactive with concurrent residual thymic tissue and t hymic hyperplasia. Per Radiology, it was difficult to exclude underlying lymphoproliferative disease and, therefore, recommended she get a CT in 6-8 weeks. I discussed this with the patient. She is a martins to get this done. 3. Lactic acidosis, resolved. 4. History of eosinophilic esophagitis, diet controlled. DISCHARGE CONDITION: Stable. Blood pressure is 114/64, heart rate of 83, respiratory rate 16, O2 sa ts on room air 94%, temperature is 36.8 Celsius. MEDICATIONS AT DISCHARGE: Please see the EMR. DISCHARGE INSTRUCTIONS: 1. A repeat CT of her chest in 6-8 weeks once her pneumonia resolves. 2. Stay well hydrated. 3. To follow up with her primary care provider if she develops more than 3 liquidy stools in a day. /[id number]/MODL
[2018-04-21 12:24] VITALS: BP 107/61
== END 2018-04-21 13:57 | disposition home or self-care (01) | DRG 871 ==
LOC: F3N 04-18 00:03 → OBSVTOIN 04-19 15:51
PROVIDERS: ADMIT Student in an Organized Health Care Education/Training Program; ATTEND Student in an Organized Health Care Education/Training Program
DX: A41.9 Sepsis, unspecified organism (principal); J18.9 Pneumonia, unspecified organism; J96.01 Acute respiratory failure with hypoxia; E87.2 Acidosis; K20.0 Eosinophilic esophagitis
CPT/HCPCS: 87449-90; 96374; G0378; J0456; J0696; J7613; Q9967

== ENCOUNTER → 2018-06-30 | Outpatient (CLI) | payer OTHER ==
[~2018-06-30] MED LIST: IOPAMIDOL (ISOVUE-300) 100 ML BTL ONE
== END ==
LOC: FIMAGING 08:35
PROVIDERS: ATTEND Family Medicine
DX: Q89.2 Congenital malformations of other endocrine glands (principal)
CPT/HCPCS: 82565-PO; Q9967

== ENCOUNTER 2018-07-11 09:52 | Day surgery (SDC) | payer OTHER ==
[2018-07-11] MEDS ORDERED: fentaNYL 100 MCG/2 ML INJ IVP PRN (10:35)
[2018-07-11] MEDS ORDERED: NALOXONE HCL 0.4 MG/ML INJ IVP PRN (10:35)
[2018-07-11] MEDS ORDERED: FLUMAZENIL 0.5 MG/5 ML MDV IVP PRN (10:35)
[2018-07-11] MEDS ORDERED: MIDAZOLAM 2 MG/2 ML VIAL IVP PRN (10:35)
[2018-07-11] MEDS ORDERED: GLUCAGON HCL 1 MG VIAL IVP PRN (10:35)
[2018-07-11] MEDS ORDERED: NS 1,000 ML IV SCH (10:45)
[2018-07-11] MEDS ORDERED: fentaNYL 100 MCG/2 ML INJ ONE (11:27)
[2018-07-11] MEDS ORDERED: FLUMAZENIL 0.5 MG/5 ML MDV IVP ONE (11:27)
[2018-07-11] MEDS ORDERED: MIDAZOLAM 2 MG/2 ML VIAL ONE (11:28)
[2018-07-11] MEDS ORDERED: NALOXONE HCL 0.4 MG/ML INJ ONE (11:28)
[2018-07-11 11:34] LABS: INR 1.03 (0.83-1.16); PROTIME(PATIENT) 13.1 SEC (12.0-15.0)
[2018-07-11] MEDS ORDERED: LIDOCAINE 1% 300 MG/30 ML SDV ONE (11:35)
--- NOTE | 2018-07-11 12:20 | PDGENHP ---
History & Physical Chief Complaint: mediastinal mass with mild increased uptake History of Present Illness: h/o recent pneumonia. 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 ? cancer versus infection ? Pertinent Past, Social, Family History: n/a. non smoker Relevant Physical Exam: in no distress Cardiorespiratory Assessment: rrr, cta
--- NOTE | 2018-07-11 12:20 | PDPROPOC ---
Sedation Plan of Care Sedation Plan of Care: vital signs stable, mental status noted, patient educated of risks, benefits, alternatives, patient can tolerate sedation ASA Classification: ASA 2 Planned drugs: fentanyl, midazolam Mallampati Score: Class 2 Mallampati Reference Image: Patient passed 3-3-2 rule?: Yes
[2018-07-11] MEDS ORDERED: ACETAMINOPHEN 325 MG TAB PO PRN (13:43)
[2018-07-11] MEDS ORDERED: ONDANSETRON 4 MG/2 ML VIAL IVP PRN (13:43)
--- NOTE | 2018-07-11 13:44 | PDRADPN ---
Radiology Procedure Note Date of Procedure: 07/11/18 Radiologist: Nila Adames Anesthesia: IV Sedation Pre-op Diagnosis: mediastinal mass Post-op Diagnosis: same Indication: needs tissue diagnosis Procedure: ct guided biopsy Inf/Abcess present in the surg proc area at time of surgery?: No
[2018-07-11] MEDS ORDERED: HYDROCODONE/APAP 5/325 TAB ONE (14:22)
[2018-07-11] MEDS ORDERED: HYDROCODONE/APAP 5/325 TAB PO PRN (14:30)
[2018-07-11 15:01] VITALS: BP 104/65
== END 2018-07-11 15:10 | disposition home or self-care (01) ==
LOC: FIMAGING 09:52
PROVIDERS: ATTEND Thoracic Surgery (Cardiothoracic Vascular Surgery)
PROC: 0WBC3ZX Excision of Mediastinum, Percutaneous Approach, Diagnostic (ICD-10-PCS; principal; 2018-07-11 13:38)
DX: R93.89 Abnormal findings on diagnostic imaging of other specified body structures (principal)
CPT/HCPCS: J2250; J2310; J3010

== ENCOUNTER 2018-07-28 20:27 | Emergency (ER) | payer OTHER ==
[2018-07-28] MEDS ORDERED: NS 500 ML IV ONE (20:39)
--- NOTE | 2018-07-28 20:49 | EDPHY ---
H & P Time Seen by Provider: 07/28/18 20:34 HPI/ROS: HPI Chest pain, shortness of breath. 23-year-old female by private vehicle with her boyfriend. She presents to the emergency department with complaint of chest pains which she describes as mid chest tightness with intermittent sharp stabbing sensations with associated shortness of breath starting yesterday. 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 She had this biopsied in early July. It was determined that it was not lymphoma. She is currently not on any chemotherapy or antibiotic. She is to have a repeat CT scan of her chest in 6 months to check for interval change. She denies fever. She has not had a cough. She states that her shortness of breath she thinks is present more with exertion. ROS: Constitutional: No fever, no chills. No weakness. Eyes: No discharge. No changes in vision. ENT: No sore throat. No nasal congestion or rhinorrhea. Respiratory: No cough. As above. Cardiac: As above, no palpitations. Gastrointestinal: No abdominal pain, no vomiting, no diarrhea. Genitourinary: No hematuria. No dysuria or increased frequency with urination. Musculoskeletal: No back pain. No neck pain. No myalgias or arthralgias. Skin: No rashes. Neurological: No headache. No focal weakness or altered sensation. Past medical history: As above. Bad menstrual cramping. Social history: Nonsmoker. Here with her boyfriend. No alcohol. Physical Exam: General Appearance: Alert, mildly anxious but she is not in distress. This patient is responding to questions appropriately and in full sentences. This patient appears well-hydrated and well-nourished. Eyes: Pupils equal and round no pallor or injection. No lid edema, erythema or injection. Respiratory: There are no retractions, lungs are clear to auscultation with good air movement bilaterally. No tachypnea. Cardiovascular: Regular rate and rhythm. No murmur appreciated. Gastrointestinal: Abdomen is soft and nontender, no masses, bowel sounds normal. No focal tenderness at McBurney's point. No Christie sign. Neurological: Motor sensory function is grossly intact. Cranial nerves are normal. Gait is normal. Skin: Warm and dry, no rashes. Musculoskeletal: Neck is supple and nontender. Extremities are symmetrical. No lower extremity edema or asymmetry. All joints range without pain or impingement. Psychiatric: No agitation. No depression. Database: EKG: EKG time is 8:40 p.m.; EKG shows a narrow complex normal sinus rhythm with a ventricular rate of 61. The IN, QRS, QT intervals are within normal limits. There are no ST-T wave changes indicative of ischemic or injury pattern. No evidence of right heart strain. Interpreted by me. Imaging: Chest x-ray PA and lateral: The cardiac mediastinal silhouette is unremarkable. No evidence of pneumothorax or infiltrate. No acute cardiopulmonary disease process. Interpreted by me. Procedures: Emergency department course: Triage vital signs reviewed and are normal. IV placed. She was placed on a security monitor. EKG obtained and reviewed by myself. She will be started on 500 cc of IV normal saline pending possible CT imaging with contrast. 9:45 p.m., the patient was re-evaluated, resting comfortably at this time. Room air pulse oximetry is 94-97%. We are waiting results of D-dimer. The rest of her workup has been unremarkable and reassuring. 10:00 p.m., the patient was re-evaluated, resting comfortably at this time. Results of diagnostic workup including negative D-dimer discussed with her and her boyfriend. At this time I feel she is safe for discharge. She has not been tachypneic. Her pulse oximetries on room air have been within normal limits. I discussed follow-up with her through her primary care physician. Return to emergency department precautions reviewed with her. All of her questions were answered. She was discharged from the emergency department in good condition. I will prescribe her an albuterol inhaler to you should she have a sensation of shortness of breath or any wheezing. She is in agreement with this plan. All of her questions were answered. She was discharged in good condition with her boyfriend. Differential Diagnosis: The differential diagnosis on this patient includes but is not limited to musculoskeletal chest pain, pleurisy, noncardiac chest pain, reactive airway disease. Pulmonary embolism, acute coronary syndrome, pneumothorax, AAA, pericarditis, myocarditis unlikely. This represents a partial list of diagnoses considered. These considerations are based on history, physical exam , past history, reassessment and diagnostic testing. Smoking Status: Never smoked Constitutional: Initial Vital Signs Temperature (C) 36.9 C 07/28/18 20:28 Heart Rate 85 07/28/18 20:28 Respiratory Rate 16 07/28/18 20:28 Blood Pressure 125/80 H 07/28/18 20:28 O2 Sat (%) 97 07/28/18 20:28 O2 Delivery Mode Room Air Allergies/Adverse Reactions: aspirin Allergy (Verified 07/28/18 20:31) Unknown Home Medications: Medication Instructions Recorded Hydrocodone/APAP 5/325 [[place] 1 each PO Q6HRS PRN 04/17/18 5/325 (*)] Ibuprofen [Motrin (*)] 200 mg PO DAILY PRN 04/18/18 Flexeril 10 MG (*) 10 mg PO 07/10/18 Medical Decision Making - Diagnostics Imaging Results: Imaging Impressions Chest X-Ray 07/28/18 20:40 Impression: No acute pulmonary disease. - Data Points Laboratory Results: Laboratory Results 07/28/18 20:34 07/28/18 20:34 07/28/18 07/28/18 07/28/18 20:47 20:34 20:34 WBC RBC Hgb Hct MCV MCH MCHC RDW Plt Count MPV Neut % (Auto) Lymph % (Auto) [place] % (Auto) Eos % (Auto) Baso % (Auto) Nucleat RBC Rel Count Absolute Neuts (auto) Absolute Lymphs (auto) Absolute Monos (auto) Absolute Eos (auto) Absolute Basos (auto) Absolute Nucleated RBC Immature Gran % Immature Gran # D-Dimer 0.38 ug/mLFEU ug/mLFEU (0.00-0.50) Sodium Potassium Chloride Carbon Dioxide Anion Gap BUN Creatinine Estimated GFR Glucose Calcium POC Troponin I 0.02 ng/mL ng/mL (0.00-0.08) Beta HCG, Qual NEGATIVE 07/28/18 07/28/18 20:34 20:34 WBC 9.62 10^3/uL H 10^3/uL (3.80-9.50) RBC 5.28 10^6/uL 10^6/uL (4.18-5.33) Hgb 15.9 g/dL g/dL (12.6-16.3) Hct 47.1 % H % (38.0-47.0) MCV 89.2 fL fL (81.5-99.8) MCH 30.1 pg pg (27.9-34.1) MCHC 33.8 g/dL g/dL (32.4-36.7) RDW 12.4 % % (11.5-15.2) Plt Count 301 10^3/uL 10^3/uL (150-400) MPV 10.9 fL fL (8.7-11.7) Neut % (Auto) 51.7 % % (39.3-74.2) Lymph % (Auto) 34.3 % % (15.0-45.0) [place] % (Auto) 6.7 % % (4.5-13.0) Eos % (Auto) 6.2 % % (0.6-7.6) Baso % (Auto) 0.8 % % (0.3-1.7) Nucleat RBC Rel Count 0.0 % % (0.0-0.2) Absolute Neuts (auto) 4.97 10^3/uL 10^3/uL (1.70-6.50) Absolute Lymphs (auto) 3.30 10^3/uL H 10^3/uL (1.00-3.00) Absolute Monos (auto) 0.64 10^3/uL 10^3/uL (0.30-0.80) Absolute Eos (auto) 0.60 10^3/uL H 10^3/uL (0.03-0.40) Absolute Basos (auto) 0.08 10^3/uL 10^3/uL (0.02-0.10) Absolute Nucleated RBC 0.00 10^3/uL 10^3/uL (0-0.01) Immature Gran % 0.3 % % (0.0-1.1) Immature Gran # 0.03 10^3/uL 10^3/uL (0.00-0.10) D-Dimer Sodium 140 mEq/L mEq/L (135-145) Potassium 4.2 mEq/L mEq/L (3.5-5.2) Chloride 100 mEq/L mEq/L (97-110) Carbon Dioxide 30 mEq/l mEq/l (22-31) Anion Gap 10 mEq/L mEq/L (6-14) BUN 17 mg/dL mg/dL (7-23) Creatinine 0.8 mg/dL mg/dL (0.6-1.0) Estimated GFR > 60 Glucose 82 mg/dL mg/dL (70-100) Calcium 9.8 mg/dL mg/dL (8.5-10.4) POC Troponin I Beta HCG, Qual Medications Given: Discontinued Medications Sodium Chloride (Ns) 500 mls @ 1,000 mls/hr IV EDNOW ONE PRN Reason: Protocol Stop: 07/28/18 21:08 Last Admin: 07/28/18 20:45 Dose: 500 mls Point of Care Test Results: Chemistry 07/28/18 20:47 POC Troponin I 0.02 ng/mL ng/mL (0.00-0.08) Departure - Departure Disposition: Home, Routine, Self-Care Clinical Impression: Chest discomfort, Dyspnea Condition: Good Instructions: Chest Pain (ED), Shortness of Breath (ED) Additional Instructions: Read and follow provided instructions. Follow-up with your primary care physician in 1-2 days for re-evaluation. Albuterol meter dose inhaler: 1-2 puffs every 2-4 hours as needed for shortness of breath or wheezing. Return to the emergency department for worsening symptoms, worsening shortness of breath/difficulty breathing, chest pain, fever, cough or other serious concerns. Referrals: Annie Campos MD [Primary Care Provider] - As per Instructions
[2018-07-28 20:54] LABS: PLATELET COUNT 301 10^3/uL (150-400)
[2018-07-28] MEDS ORDERED: ALBUTEROL INH PREPACK MDI TAKEHOME ONE (21:58)
[2018-07-28 22:14] VITALS: BP 120/80
--- NOTE | 2018-07-28 22:24 | CPEKG ---
Test Reason : OPEN Blood Pressure : / mmHG Vent. Rate : 061 BPM Atrial Rate : 059 BPM P-R Int : 168 ms QRS Dur : 085 ms QT Int : 421 ms P-R-T Axes : 008 072 060 degrees QTc Int : 424 ms Sinus rhythm Confirmed by Zeke Gutierrez ([id number]) on 07/28/2018 10:23:05 PM Referred By: Zeke Gutierrez Confirmed By:Zeke Gutierrez
== END 2018-07-28 22:14 | disposition home or self-care (01) ==
DX: R07.89 Other chest pain (principal); R06.02 Shortness of breath
CPT/HCPCS: 84484-ER